=== PATIENT | female | born 1955 | race American Indian/Alaskan Native ===

== ENCOUNTER 2016-09-10 09:58 | Outpatient (CLI) | payer BC ==
--- NOTE | 2016-09-10 11:07 | Cat Scan Report ---
CT ABDOMEN AND PELVIS WITHOUT CONTRAST: 09/10/16 09:58:00 CLINICAL:Right lower quadrant abdominal pain. TECHNIQUE: Volumetric acquisition and 1.25 millimeter scan reconstructions from the lung bases through the iliac crest. The study was performed without oral contrast. FINDINGS: Abdomen:Normal kidneys with nondilated renal collecting systems and ureters. The left kidney measures 9.8 cm in length and the right kidney measures 9.6 cm in length. No renal mass, calculus or cyst. No ureteral calculus identified. Normal liver size, contour and overall density. A single 5 mm benign calcification of the left lobe of the liver. Normal bile ducts and gallbladder. Normal distal esophagus, stomach, duodenum, pancreas and spleen. Normal adrenal glands. Mild calcification of the abdominal aorta and iliac arteries. The inferior vena cava is normal. The small bowel is normal. A few scattered diverticula of the ascending, transverse and descending colon. No signs of diverticulitis. The appendix is well eminence and normal. A few scattered lymph nodes of the small bowel mesentery and a 7 mm lymph node of the gastrosplenic ligament. No ascites and no pneumoperitoneum. Pelvis: Absent uterus and normal vaginal cuff. Ovaries are not identified. Normal urinary bladder and rectum.Normal sigmoid colon. No adnexal mass or free fluid. Several bilateral mildly prominent inguinal lymph nodes as well as internal and external iliac lymph nodes. IMPRESSION: 1. No urinary calculus. 2. Mild diverticulosis but no diverticulitis. 3. Scattered small lymph nodes in the abdomen and pelvis are of uncertain etiology and significance. Consider followup CT in six months.
== END 2016-09-10 09:59 | disposition home or self-care (01) ==
LOC: SPVIMAG 09:58
DX: K57.30 Diverticulosis of large intestine without perforation or abscess without bleeding (principal); K76.89 Other specified diseases of liver; I70.0 Atherosclerosis of aorta; Z90.710 Acquired absence of both cervix and uterus
CPT/HCPCS: 74176